=== PATIENT | female | born 1995 | race Caucasian/White ===

== ENCOUNTER 2018-04-09 09:47 | Outpatient (CLI) | payer MEDICAID ==
[2018-04-09 10:38] LABS: ADD UMIC YES; UR ASCORBIC ACID NEGATIVE (NEGATIVE); UR BACTERIA FEW /HPF (NONE SEEN); UR BILIRUBIN (Dip) NEGATIVE (NEGATIVE); UR BLOOD (Dip) NEGATIVE (NEGATIVE); UR CLARITY SLIGHTLY CLOUDY (CLEAR); UR COLOR YELLOW (YELLOW); UR GLUCOSE (Dip) NEGATIVE (NEGATIVE); UR KETONES (Dip) NEGATIVE (NEGATIVE); UR LEUKOCYTE ESTERASE (Dip) TRACE Leu/ul (NEGATIVE); UR NITRITE (Dip) NEGATIVE (NEGATIVE); UR RBC 1 /HPF (0-5); UR SPECIFIC GRAVITY (Dip) 1.015 (1.003-1.030); UR SQUAMOUS EPITHELIAL CELL FEW /HPF (FEW); UR TOTAL PROTEIN (Dip) NEGATIVE (NEGATIVE); UR UROBILINOGEN (Dip) NEGATIVE (NEGATIVE); UR WBC 3 /HPF (0-5)
== END 2018-04-09 12:45 | disposition home or self-care (01) ==
LOC: OBT 09:47 → L-D 09:47 → OBT 12:45
DX: O62.9 Abnormality of forces of labor, unspecified (principal); Z3A.40 40 weeks gestation of pregnancy
CPT/HCPCS: 76818; 81001; 87086

== ENCOUNTER 2018-04-11 14:43 | Inpatient (IN) | payer MEDICAID ==
[2018-04-11] MEDS ORDERED: METHYLERGONOVINE 0.2 MG INJ IM (17:00)
[2018-04-11] MEDS ORDERED: MISOPROSTOL 200 MCG TAB PR (17:00)
[2018-04-11] MEDS ORDERED: OXYTOCIN 30 UNITS/LR 500 ML IV (17:00)
[2018-04-11] MEDS ORDERED: LIDOCAINE 1% (MPF) 30 ML INJ INJ (17:00)
[2018-04-11] MEDS ORDERED: BUTORPHANOL 1 MG INJ IV (17:00)
[2018-04-11] MEDS ORDERED: CARBOPROST 250 MCG INJ IM (17:00)
[2018-04-11] MEDS: DINOPROSTONE 10 MG VAG SUPP VAG (17:51)
[2018-04-11 17:52] LABS: ADD MAN DIFF? NO
[2018-04-11 17:55] LABS: BASOPHILS % 0.4 % (0.0-2.0); EOSINOPHILS # 0.1 10^3/ul (0.0-0.5); EOSINOPHILS % 1.2 % (0.0-7.0); HEMATOCRIT 38.2 % (37.0-47.0); HEMOGLOBIN 13.1 g/dl (12.0-16.0); LYMPHOCYTES # 2.6 10^3/ul (0.8-2.9); LYMPHOCYTES % 26.8 % (15.0-51.0); MEAN CORPUSCULAR HEMOGLOBIN 31.4 pg (29.0-33.0); MEAN CORPUSCULAR HGB CONC 34.3 g/dl (32.0-37.0); MEAN CORPUSCULAR VOLUME 91.6 fl (82.0-101.0); MEAN PLATELET VOLUME 11.4 fl (7.4-10.4); MONOCYTE # 0.7 10^3/ul (0.3-0.9); MONOCYTES % 7.2 % (0.0-11.0); NEUTROPHIL # 6.1 10^3/ul (1.6-7.5); PLATELET COUNT 236 10^3/UL (140-415); RED BLOOD COUNT 4.17 10^6/ul (4.20-5.40); RED CELL DISTRIBUTION WIDTH 12.9 % (11.5-14.5)
[2018-04-11 17:55] LABS: WHITE BLOOD COUNT 9.5 10^3/ul (4.8-10.8)
[2018-04-11] MEDS: LACTATED RINGER'S 1,000 ML IV ×2 (17:55→19:16)
[2018-04-11 18:14] LABS: ADD UMIC YES; PROTIME 12.2 Sec (11.9-14.9); UR ASCORBIC ACID NEGATIVE (NEGATIVE); UR BACTERIA FEW /HPF (NONE SEEN); UR BILIRUBIN (Dip) NEGATIVE (NEGATIVE); UR BLOOD (Dip) NEGATIVE (NEGATIVE); UR CALCIUM OXALATE CRYSTAL MODERATE /HPF (NONE SEEN); UR CLARITY CLOUDY (CLEAR); UR COLOR YELLOW (YELLOW); UR GLUCOSE (Dip) NEGATIVE (NEGATIVE); UR KETONES (Dip) NEGATIVE (NEGATIVE); UR LEUKOCYTE ESTERASE (Dip) 2+ Leu/ul (NEGATIVE); UR MUCUS FEW /HPF (NONE SEEN); UR NITRITE (Dip) NEGATIVE (NEGATIVE); UR RBC 3 /HPF (0-5); UR SPECIFIC GRAVITY (Dip) 1.017 (1.003-1.030); UR SQUAMOUS EPITHELIAL CELL MODERATE /HPF (FEW); UR TOTAL PROTEIN (Dip) NEGATIVE (NEGATIVE); UR TRANSITIONAL EPI CELL FEW /HPF (NONE SEEN); UR UROBILINOGEN (Dip) NEGATIVE (NEGATIVE); UR WBC 6 /HPF (0-5)
[2018-04-11 18:15] LABS: PARTIAL THROMBOPLASTIN TIME 24.4 Sec (25.0-35.0)
[2018-04-11 19:50] LABS: HEPATITIS B SURFACE ANTIGEN NEGATIVE (NEGATIVE)
[2018-04-12] MEDS: LACTATED RINGER'S 1,000 ML IV ×3 (02:46→19:51)
[2018-04-12 11:46] LABS: AMPHETAMINE/METHAMPHETAMINE NEGATIVE (NEGATIVE); BARBITURATES NEGATIVE (NEGATIVE); BENZODIAZEPINES NEGATIVE (NEGATIVE); CANNABINOIDS NEGATIVE (NEGATIVE); COCAINE NEGATIVE (NEGATIVE); OPIATES NEGATIVE (NEGATIVE)
[2018-04-12 15:31] LABS: RAPID PLASMA REAGIN NONREACTIVE (NR)
[2018-04-12] MEDS: DINOPROSTONE 10 MG VAG SUPP VAG (18:46)
[2018-04-12] MEDS: BUTORPHANOL 2 MG INJ IV (21:24)
[2018-04-13] MEDS: BUTORPHANOL 2 MG INJ IV (01:54)
[2018-04-13] MEDS ORDERED: OXYTOCIN 30 UNITS/LR 500 ML IV ×2 (03:30→20:30)
[2018-04-13] MEDS: LACTATED RINGER'S 1,000 ML IV ×3 (04:05→10:32)
[2018-04-13] MEDS ORDERED: FENTAnyl 2MCG/ML-ROPIV 0.2% 100 ML (07:47)
[2018-04-13] MEDS: MINERAL OIL LIGHT 10 ML VIAL TOP (08:30)
[2018-04-13] MEDS: OXYTOCIN 30 UNITS/LR 500 ML IV ×2 (08:31→18:08)
[2018-04-13] MEDS ORDERED: ONDANSETRON 4 MG INJ IV (09:00)
[2018-04-13] MEDS ORDERED: ZOLPIDEM 5 MG TAB PO ×2 (09:00→20:30)
[2018-04-13] MEDS ORDERED: HYDROmorphONE 0.5 MG/0.5 ML SYG IV ×2 (09:00)
[2018-04-13] MEDS ORDERED: KETOROLAC 30 MG INJ IV (09:00)
[2018-04-13] MEDS ORDERED: DIPHENHYDRAMINE 50 MG INJ IV (09:00)
[2018-04-13] MEDS ORDERED: NALOXONE (0.4 MG/ML) INJ IV (09:00)
[2018-04-13] MEDS ORDERED: AMPICILLIN 2 GM/NS (PMX) 100 ML (14:46)
[2018-04-13] MEDS: AMPICILLIN 2 GM/NS (PMX) 100 ML IVPB (14:51)
[2018-04-13 15:17] LABS: ADD MAN DIFF? NO
[2018-04-13 15:19] LABS: WHITE BLOOD COUNT 13.4 10^3/ul (4.8-10.8)
[2018-04-13 15:19] LABS: BASOPHILS % 0.1 % (0.0-2.0); HEMATOCRIT 37.4 % (37.0-47.0); HEMOGLOBIN 12.6 g/dl (12.0-16.0); LYMPHOCYTES # 2.2 10^3/ul (0.8-2.9); LYMPHOCYTES % 16.7 % (15.0-51.0); MEAN CORPUSCULAR HEMOGLOBIN 31.4 pg (29.0-33.0); MEAN CORPUSCULAR HGB CONC 33.7 g/dl (32.0-37.0); MEAN CORPUSCULAR VOLUME 93.3 fl (82.0-101.0); MEAN PLATELET VOLUME 11.1 fl (7.4-10.4); MONOCYTE # 0.7 10^3/ul (0.3-0.9); MONOCYTES % 5.5 % (0.0-11.0); NEUTROPHIL # 10.4 10^3/ul (1.6-7.5); NEUTROPHILS % 77.3 % (39.0-77.0); PLATELET COUNT 196 10^3/UL (140-415); RED BLOOD COUNT 4.01 10^6/ul (4.20-5.40)
[2018-04-13 15:37] LABS: ALBUMIN/GLOBULIN RATIO 1.03; ANION GAP 12 (8-16)
[2018-04-13 15:43] LABS: INR 0.96; PROTIME 12.9 Sec (11.9-14.9)
[2018-04-13 15:44] LABS: PARTIAL THROMBOPLASTIN TIME 25.8 Sec (25.0-35.0)
[2018-04-13 15:46] LABS: ALANINE AMINOTRANSFERASE 13 IU/L (13-69); ALBUMIN 3.3 g/dl (3.3-4.9); ALKALINE PHOSPHATASE 246 IU/L (42-121); ASPARTATE AMINO TRANSFERASE 14 IU/L (15-46); BILIRUBIN,INDIRECT 0.6 mg/dl (0-1.1); BILIRUBIN,TOTAL 0.6 mg/dl (0.2-1.3); BLOOD UREA NITROGEN 6 mg/dl (7-20); CARBON DIOXIDE 22 mmol/L (21-31); CHLORIDE 110 mmol/L (97-110); CREATININE 0.54 mg/dl (0.44-1.00); GLUCOSE 88 mg/dl (70-220); POTASSIUM 3.7 mmol/L (3.5-5.1); SODIUM 140 mmol/L (135-144); TOTAL PROTEIN 6.5 g/dl (6.1-8.1)
[2018-04-13 15:49] LABS: ADD UMIC NO; UR ASCORBIC ACID NEGATIVE (NEGATIVE); UR BILIRUBIN (Dip) NEGATIVE (NEGATIVE); UR BLOOD (Dip) NEGATIVE (NEGATIVE); UR CLARITY CLEAR (CLEAR); UR COLOR YELLOW (YELLOW); UR GLUCOSE (Dip) NEGATIVE (NEGATIVE); UR KETONES (Dip) 1+ mg/dL (NEGATIVE); UR LEUKOCYTE ESTERASE (Dip) NEGATIVE Leu/ul (NEGATIVE); UR NITRITE (Dip) NEGATIVE (NEGATIVE); UR SPECIFIC GRAVITY (Dip) 1.008 (1.003-1.030); UR TOTAL PROTEIN (Dip) NEGATIVE (NEGATIVE); UR UROBILINOGEN (Dip) NEGATIVE (NEGATIVE)
[2018-04-13] MEDS: FENTAnyl 2MCG/ML-ROPIV 0.2% 100 ML BAG EPI (16:24)
[2018-04-13] MEDS ORDERED: AMPICILLIN 1 GM/NS (PMX) 50 ML IVPB (19:00)
[2018-04-13] MEDS ORDERED: CARBOPROST 250 MCG INJ IM (20:30)
[2018-04-13] MEDS ORDERED: MISOPROSTOL 200 MCG TAB PR (20:30)
[2018-04-13] MEDS ORDERED: HYDROCODONE/APAP (5/325) TAB PO (20:30)
[2018-04-13] MEDS ORDERED: DIBUCAINE 1% 30 GM OINT PR (20:30)
[2018-04-13] MEDS ORDERED: METHYLERGONOVINE 0.2 MG INJ IM (20:30)
[2018-04-13] MEDS: MAGNESIUM HYDROXIDE 30ML CUP PO (21:29)
[2018-04-13] MEDS: SENNA/DOCUSATE NA (8.6MG/50MG) TAB PO (21:29)
[2018-04-13] MEDS: BENZOCAINE 20% 56 ML SPRAY TOP (21:30)
[2018-04-13] MEDS: WITCH HAZEL/GLYCERIN PAD PR (21:30)
[2018-04-13] MEDS: LANOLIN 7 GM TUBE TOP (21:30)
[2018-04-13] MEDS: HYDROCODONE/APAP (5/325) TAB PO (21:42)
[2018-04-13] MEDS: LACTATED RINGER'S 1,000 ML IV* (23:20)
[2018-04-14] MEDS: LACTATED RINGER'S 1,000 ML IV* (04:16)
[2018-04-14] MEDS: CEPHALEXIN 500 MG CAP PO ×5 (06:01→23:39)
[2018-04-14] MEDS: IBUPROFEN 600 MG TAB PO ×5 (06:01→23:39)
[2018-04-14 07:03] LABS: ADD MAN DIFF? NO
[2018-04-14 07:19] LABS: BASOPHIL # 0.1 10^3/ul (0.0-0.1); BASOPHILS % 0.4 % (0.0-2.0); EOSINOPHILS # 0.1 10^3/ul (0.0-0.5); EOSINOPHILS % 0.7 % (0.0-7.0); HEMATOCRIT 34.6 % (37.0-47.0); HEMOGLOBIN 11.6 g/dl (12.0-16.0); LYMPHOCYTES # 3.8 10^3/ul (0.8-2.9); MEAN CORPUSCULAR HEMOGLOBIN 31.7 pg (29.0-33.0); MEAN CORPUSCULAR HGB CONC 33.5 g/dl (32.0-37.0); MEAN CORPUSCULAR VOLUME 94.5 fl (82.0-101.0); MEAN PLATELET VOLUME 11.6 fl (7.4-10.4); MONOCYTE # 0.9 10^3/ul (0.3-0.9); MONOCYTES % 5.7 % (0.0-11.0); NEUTROPHIL # 10.3 10^3/ul (1.6-7.5); NEUTROPHILS % 67.7 % (39.0-77.0); PLATELET COUNT 192 10^3/UL (140-415); RED BLOOD COUNT 3.66 10^6/ul (4.20-5.40); RED CELL DISTRIBUTION WIDTH 13.2 % (11.5-14.5)
[2018-04-14 07:19] LABS: WHITE BLOOD COUNT 15.2 10^3/ul (4.8-10.8)
[2018-04-14] MEDS: SENNA/DOCUSATE NA (8.6MG/50MG) TAB PO ×2 (10:00→21:00)
[2018-04-14] MEDS: MAGNESIUM HYDROXIDE 30ML CUP PO ×2 (10:01→21:00)
[2018-04-15] MEDS: CEPHALEXIN 500 MG CAP PO ×2 (05:28→12:19)
[2018-04-15] MEDS: IBUPROFEN 600 MG TAB PO ×2 (05:29→12:20)
[2018-04-15] MEDS: VARICELLA VACCINE LIVE/PF 1,350 UNIT/0.5 ML ML SC* (09:00)
[2018-04-15] MEDS: MEASLES,MUMPS,RUBELLA VACCINE INJ SC* (09:00)
[2018-04-15] MEDS: DIPHTH/TET/ACEL PERTUSS (ADULT) 0.5 ML VIAL IM* (09:00)
[2018-04-15] MEDS: MAGNESIUM HYDROXIDE 30ML CUP PO (09:35)
[2018-04-15] MEDS: SENNA/DOCUSATE NA (8.6MG/50MG) TAB PO (09:35)
== END 2018-04-15 16:05 | disposition home or self-care (01) | DRG 775 ==
LOC: OBT 14:43 → PP1 04-13 19:52 → L-D 14:43 → OBT 16:40 → L-D 16:40
PROC: 10E0XZZ Delivery of Products of Conception, External Approach (ICD-10-PCS; principal; 2018-04-13)
PROC: 0HQ9XZZ Repair Perineum Skin, External Approach (ICD-10-PCS; 2018-04-13)
PROC: 3E033VJ Introduction of Other Hormone into Peripheral Vein, Percutaneous Approach (ICD-10-PCS; 2018-04-13)
DX: O48.0 Post-term pregnancy (principal); Z3A.40 40 weeks gestation of pregnancy; O70.0 First degree perineal laceration during delivery; Z37.0 Single live birth
CPT/HCPCS: 62319; 76815; 76818; 80053; 80307; 81001; 81003; 84560; 85025; 85610; 85730; 86592; 86850; 86900; 86901; 87086; 87340